=== PATIENT | female | born 1960 | race African-American/Black ===

== ENCOUNTER 2025-05-09 14:13 | Inpatient (IN) | payer OTHER ==
[~2025-05-09 14:13] MED LIST: Iopamidol-370 76% 500 ML MDV (1 ML CHARGE) ONE
[2025-05-09 16:53] LABS: #Basophils Less than 0.03 10x3/uL (0.0-0.2); #Eosinophils 0.36 10x3/uL (0.0-0.7); #Monocytes 0.43 10x3/uL (0.11-0.59); #Neutrophils 2.48 10x3/uL (1.40-6.50); %Basophils 0.2 % (0.0-1.0); %Eosinophils 8.8 % (0.0-10.0); %Lymphocytes 19.7 % (21.0-51.0); %Monocytes 10.5 % (0.0-10.0); %Neutrophils 60.3 % (42.0-75.0); Hematocrit 47.1 % (36.0-47.0); Hemoglobin 15.3 g/dL (12.0-16.0); Mean Corpuscular Hemoglobin 29.7 pg (27.0-31.0); Mean Corpuscular Volume 91.5 fL (78.0-98.0); Platelet Count 187 10x3/uL (130-400); Red Blood Cell (RBC) Count 5.15 mill/uL (4.20-5.40); White Blood Cell (WBC) Count 4.11 10x3/uL (4.8-10.8)
[2025-05-09 17:06] LABS: ALT (SGPT) 21 U/L (Less than 34); AST (SGOT) 24 U/L (11-34); Albumin 3.6 g/dL (3.1-4.5); Alkaline Phosphatase 60 U/L (40-110); Anion Gap 14 mmol/L (10-20); BUN (Urea Nitrogen) 16 mg/dL (9.8-20.1); Bilirubin, Total 0.5 mg/dL (0.3-1.2); Calc. Creatinine Clearance 0 mL/min (70-130); Calcium 9.6 mg/dL (7.8-10.44); Carbon Dioxide 30 mmol/L (23-31); Chloride 104 mmol/L (98-107); Globulin 3.5 g/dL (2.4-3.5); Glucose 97 mg/dL (80-115); Potassium 3.7 mmol/L (3.5-5.1); Sodium 144 mmol/L (136-145)
[2025-05-09] MEDS ORDERED: Nitroglycerin 2% Ointment 1 INCH/1 GM Packet ONE (18:28)
[2025-05-09] MEDS ORDERED: Ondansetron PF 4 MG/2 ML Vial IVP PRN (18:56)
[2025-05-09] MEDS ORDERED: Senokot S 8.6-50 MG TAB PO PRN (18:56)
[2025-05-09] MEDS: Benzonatate 100 MG CAP PO SCH (23:47)
[2025-05-10 04:14] LABS: #Basophils Less than 0.03 10x3/uL (0.0-0.2); #Eosinophils Less than 0.03 10x3/uL (0.0-0.7); #Monocytes 0.07 10x3/uL (0.11-0.59); #Neutrophils 4.03 10x3/uL (1.40-6.50); %Basophils 0.2 % (0.0-1.0); %Eosinophils 0.0 % (0.0-10.0); %Lymphocytes 7.4 % (21.0-51.0); %Monocytes 1.6 % (0.0-10.0); %Neutrophils 90.4 % (42.0-75.0); Hematocrit 44.1 % (36.0-47.0); Hemoglobin 14.3 g/dL (12.0-16.0); Mean Corpuscular Hemoglobin 29.5 pg (27.0-31.0); Mean Corpuscular Volume 91.1 fL (78.0-98.0); Platelet Count 201 10x3/uL (130-400); Red Blood Cell (RBC) Count 4.84 mill/uL (4.20-5.40); White Blood Cell (WBC) Count 4.46 10x3/uL (4.8-10.8)
[2025-05-10 04:36] LABS: ALT (SGPT) 20 U/L (Less than 34); AST (SGOT) 25 U/L (11-34); Albumin 3.6 g/dL (3.1-4.5); Alkaline Phosphatase 60 U/L (40-110); Anion Gap 15 mmol/L (10-20); BUN (Urea Nitrogen) 15 mg/dL (9.8-20.1); Bilirubin, Total 0.4 mg/dL (0.3-1.2); Calc. Creatinine Clearance 67 mL/min (70-130); Calcium 9.5 mg/dL (7.8-10.44); Carbon Dioxide 26 mmol/L (23-31); Cardiac Risk 2.7 (Less than 4.5); Chloride 105 mmol/L (98-107); Cholesterol 204 mg/dl (< 200 Desired); Globulin 3.4 g/dL (2.4-3.5); Glucose 198 mg/dL (80-115); HDL Cholesterol 76 mg/dL (>60 Neg Risk); LDL Cholesterol, Calculated 115 mg/dL; Potassium 3.8 mmol/L (3.5-5.1); Sodium 142 mmol/L (136-145); Triglycerides 66 mg/dL (Less than 150)
[2025-05-10] MEDS: Mometasone 200 MCG/Formoterol 5 MCG 120 PUFF INHALER INH SCH (06:43)
[2025-05-10] MEDS: Aspirin 81 mg Enteric Coated Tablet PO SCH (07:59)
[2025-05-10] MEDS: hydrALAZINE 20 MG/ML VIAL SLOW IVP PRN ×2 (08:06→15:49)
[2025-05-10 12:08] VITALS: BMI 33.0
[2025-05-10] MEDS: Metoprolol Succinate XL 25 MG ER.TAB PO SCH (12:36)
[2025-05-10] MEDS ORDERED: Dextrose 50% Abboject 50 ML SYRINGE SLOW IVP PRN (17:37)
[2025-05-10] MEDS ORDERED: Glucagon 1 MG/ML KIT IM PRN (17:37)
[2025-05-11] MEDS: Losartan 25 MG TAB PO SCH (02:07)
[2025-05-11 05:07] LABS: #Basophils Less than 0.03 10x3/uL (0.0-0.2); #Eosinophils Less than 0.03 10x3/uL (0.0-0.7); #Monocytes 0.31 10x3/uL (0.11-0.59); #Neutrophils 9.85 10x3/uL (1.40-6.50); %Basophils 0.1 % (0.0-1.0); %Eosinophils 0.0 % (0.0-10.0); %Lymphocytes 4.6 % (21.0-51.0); %Monocytes 2.9 % (0.0-10.0); %Neutrophils 91.7 % (42.0-75.0); Hematocrit 47.8 % (36.0-47.0); Hemoglobin 15.3 g/dL (12.0-16.0); Mean Corpuscular Hemoglobin 29.5 pg (27.0-31.0); Mean Corpuscular Volume 92.1 fL (78.0-98.0); Platelet Count 238 10x3/uL (130-400); Red Blood Cell (RBC) Count 5.19 mill/uL (4.20-5.40); White Blood Cell (WBC) Count 10.74 10x3/uL (4.8-10.8)
[2025-05-11 05:40] LABS: ALT (SGPT) 17 U/L (Less than 34); AST (SGOT) 14 U/L (11-34); Albumin 3.3 g/dL (3.1-4.5); Alkaline Phosphatase 56 U/L (40-110); Anion Gap 13 mmol/L (10-20); BUN (Urea Nitrogen) 24 mg/dL (9.8-20.1); Bilirubin, Total 0.3 mg/dL (0.3-1.2); Calc. Creatinine Clearance 83 mL/min (70-130); Calcium 9.7 mg/dL (7.8-10.44); Carbon Dioxide 27 mmol/L (23-31); Chloride 102 mmol/L (98-107); Globulin 3.2 g/dL (2.4-3.5); Glucose 142 mg/dL (80-115); Potassium 4.0 mmol/L (3.5-5.1); Sodium 138 mmol/L (136-145)
[2025-05-11] MEDS: Acetaminophen 325 MG TAB PO PRN (09:14)
[2025-05-11] MEDS: niCARdipine 25 MG in Sodium Chloride 0.9% 250 ML 250 ML IVPB SCH (14:38)
[2025-05-12 03:53] LABS: #Basophils 0.03 10x3/uL (0.0-0.2); #Eosinophils Less than 0.03 10x3/uL (0.0-0.7); #Monocytes 0.49 10x3/uL (0.11-0.59); #Neutrophils 8.55 10x3/uL (1.40-6.50); %Basophils 0.3 % (0.0-1.0); %Eosinophils 0.1 % (0.0-10.0); %Lymphocytes 9.5 % (21.0-51.0); %Monocytes 4.8 % (0.0-10.0); %Neutrophils 84.5 % (42.0-75.0); Hematocrit 49.1 % (36.0-47.0); Hemoglobin 16.3 g/dL (12.0-16.0); Mean Corpuscular Hemoglobin 30.2 pg (27.0-31.0); Mean Corpuscular Volume 91.1 fL (78.0-98.0); Platelet Count 226 10x3/uL (130-400); Red Blood Cell (RBC) Count 5.39 mill/uL (4.20-5.40); White Blood Cell (WBC) Count 10.12 10x3/uL (4.8-10.8)
[2025-05-12 04:13] LABS: ALT (SGPT) 14 U/L (Less than 34); AST (SGOT) 15 U/L (11-34); Albumin 3.3 g/dL (3.1-4.5); Alkaline Phosphatase 53 U/L (40-110); Anion Gap 14 mmol/L (10-20); BUN (Urea Nitrogen) 25 mg/dL (9.8-20.1); Bilirubin, Total 0.3 mg/dL (0.3-1.2); Calc. Creatinine Clearance 98 mL/min (70-130); Calcium 9.2 mg/dL (7.8-10.44); Carbon Dioxide 25 mmol/L (23-31); Chloride 101 mmol/L (98-107); Globulin 3.2 g/dL (2.4-3.5); Glucose 109 mg/dL (80-115); Potassium 3.6 mmol/L (3.5-5.1); Sodium 136 mmol/L (136-145)
[2025-05-12 05:30] VITALS: BMI 33.9
[2025-05-12 06:51] LABS: Free T4 (Free Thyroxine) 1.0 ng/dL (0.70-1.48)
[2025-05-12] MEDS: Metoprolol Succinate XL 50 MG ER.TAB PO SCH (08:40)
[2025-05-12] MEDS: predniSONE 20 MG TAB PO SCH (08:40)
[2025-05-12] MEDS: Losartan 25 MG TAB PO SCH (08:40)
[2025-05-12] MEDS: Carvedilol 6.25 MG TAB PO SCH ×2 (14:02→15:39)
[2025-05-12] MEDS ORDERED: diphenhydrAMINE 25 MG CAP PO PRN (18:49)
[2025-05-13] MEDS: hydrALAZINE 20 MG/ML VIAL SLOW IVP PRN (01:59)
[2025-05-13] MEDS: Aspirin Chewable 81 MG TAB PO SCH (04:25)
[2025-05-13] MEDS: Calcium Carbonate 500 MG ChewTAB PO PRN (04:26)
[2025-05-13 04:51] LABS: #Basophils 0.03 10x3/uL (0.0-0.2); #Eosinophils Less than 0.03 10x3/uL (0.0-0.7); #Monocytes 0.77 10x3/uL (0.11-0.59); #Neutrophils 7.58 10x3/uL (1.40-6.50); %Basophils 0.3 % (0.0-1.0); %Eosinophils 0.2 % (0.0-10.0); %Lymphocytes 17.8 % (21.0-51.0); %Monocytes 7.4 % (0.0-10.0); %Neutrophils 72.8 % (42.0-75.0); Hematocrit 51.6 % (36.0-47.0); Hemoglobin 16.6 g/dL (12.0-16.0); Mean Corpuscular Hemoglobin 29.4 pg (27.0-31.0); Mean Corpuscular Volume 91.3 fL (78.0-98.0); Platelet Count 255 10x3/uL (130-400); Red Blood Cell (RBC) Count 5.65 mill/uL (4.20-5.40); White Blood Cell (WBC) Count 10.41 10x3/uL (4.8-10.8)
[2025-05-13 05:07] LABS: ALT (SGPT) 23 U/L (Less than 34); AST (SGOT) 17 U/L (11-34); Albumin 3.2 g/dL (3.1-4.5); Alkaline Phosphatase 56 U/L (40-110); Anion Gap 14 mmol/L (10-20); BUN (Urea Nitrogen) 30 mg/dL (9.8-20.1); Bilirubin, Total 0.3 mg/dL (0.3-1.2); Calc. Creatinine Clearance 93 mL/min (70-130); Calcium 9.0 mg/dL (7.8-10.44); Carbon Dioxide 27 mmol/L (23-31); Chloride 100 mmol/L (98-107); Globulin 3.2 g/dL (2.4-3.5); Glucose 102 mg/dL (80-115); Potassium 3.9 mmol/L (3.5-5.1); Sodium 137 mmol/L (136-145)
[2025-05-13] MEDS: Pantoprazole 40 MG VIAL IVP SCH (09:08)
[2025-05-13] MEDS ORDERED: Simethicone Chewable 80 MG TAB PO PRN (11:02)
[2025-05-13] MEDS: Enoxaparin 40 MG (0.4 mL) SYRINGE SC SCH (20:59)
[2025-05-14 06:21] LABS: #Basophils 0.04 10x3/uL (0.0-0.2); #Eosinophils 0.06 10x3/uL (0.0-0.7); #Monocytes 0.94 10x3/uL (0.11-0.59); #Neutrophils 7.02 10x3/uL (1.40-6.50); %Basophils 0.4 % (0.0-1.0); %Eosinophils 0.6 % (0.0-10.0); %Lymphocytes 22.9 % (21.0-51.0); %Monocytes 8.8 % (0.0-10.0); %Neutrophils 65.4 % (42.0-75.0); Hematocrit 52.0 % (36.0-47.0); Hemoglobin 16.6 g/dL (12.0-16.0); Mean Corpuscular Hemoglobin 29.5 pg (27.0-31.0); Mean Corpuscular Volume 92.5 fL (78.0-98.0); Platelet Count 282 10x3/uL (130-400); Red Blood Cell (RBC) Count 5.62 mill/uL (4.20-5.40); White Blood Cell (WBC) Count 10.71 10x3/uL (4.8-10.8)
[2025-05-14 06:39] LABS: ALT (SGPT) 32 U/L (Less than 34); AST (SGOT) 29 U/L (11-34); Albumin 3.0 g/dL (3.1-4.5); Alkaline Phosphatase 60 U/L (40-110); Anion Gap 14 mmol/L (10-20); BUN (Urea Nitrogen) 33 mg/dL (9.8-20.1); Bilirubin, Total 0.2 mg/dL (0.3-1.2); Calc. Creatinine Clearance 80 mL/min (70-130); Calcium 9.5 mg/dL (7.8-10.44); Carbon Dioxide 25 mmol/L (23-31); Chloride 101 mmol/L (98-107); Globulin 3.1 g/dL (2.4-3.5); Glucose 79 mg/dL (80-115); Potassium 3.6 mmol/L (3.5-5.1); Sodium 136 mmol/L (136-145)
[2025-05-14] MEDS: Carvedilol 6.25 MG TAB PO SCH (08:42)
[2025-05-15 07:21] LABS: #Basophils 0.06 10x3/uL (0.0-0.2); #Eosinophils 0.08 10x3/uL (0.0-0.7); #Monocytes 0.77 10x3/uL (0.11-0.59); #Neutrophils 6.76 10x3/uL (1.40-6.50); %Basophils 0.6 % (0.0-1.0); %Eosinophils 0.7 % (0.0-10.0); %Lymphocytes 26.7 % (21.0-51.0); %Monocytes 7.1 % (0.0-10.0); %Neutrophils 62.9 % (42.0-75.0); Hematocrit 49.4 % (36.0-47.0); Hemoglobin 16.5 g/dL (12.0-16.0); Mean Corpuscular Hemoglobin 30.1 pg (27.0-31.0); Mean Corpuscular Volume 90.0 fL (78.0-98.0); Platelet Count 265 10x3/uL (130-400); Red Blood Cell (RBC) Count 5.49 mill/uL (4.20-5.40); White Blood Cell (WBC) Count 10.77 10x3/uL (4.8-10.8)
[2025-05-15 07:39] LABS: ALT (SGPT) 33 U/L (Less than 34); AST (SGOT) 23 U/L (11-34); Albumin 3.0 g/dL (3.1-4.5); Alkaline Phosphatase 52 U/L (40-110); Anion Gap 14 mmol/L (10-20); BUN (Urea Nitrogen) 38 mg/dL (9.8-20.1); Bilirubin, Total 0.3 mg/dL (0.3-1.2); Calc. Creatinine Clearance 86 mL/min (70-130); Calcium 8.9 mg/dL (7.8-10.44); Carbon Dioxide 26 mmol/L (23-31); Chloride 101 mmol/L (98-107); Globulin 2.9 g/dL (2.4-3.5); Glucose 78 mg/dL (80-115); Potassium 3.6 mmol/L (3.5-5.1); Sodium 137 mmol/L (136-145)
[2025-05-15] MEDS: Carvedilol 6.25 MG TAB PO SCH (10:54)
[2025-05-15 14:25] VITALS: BP 145/90; TEMP 97.6
[2025-05-15] MEDS ORDERED: Carvedilol 6.25 MG TAB PO SCH (17:00)
[2025-05-16] MEDS ORDERED: predniSONE 20 MG TAB PO SCH (08:00)
== END 2025-05-15 15:23 | disposition home or self-care (01) | DRG 190 ==
LOC: ERS 14:13 → SUATTDRO 14:13 → 2NO 18:55 → OBSVTOIN 05-10 14:06 → IMCU/EMU 05-11 14:31 → MSONC 05-13 18:11
PROVIDERS: ADMIT Internal Medicine; ATTEND Internal Medicine
DX: J44.1 Chronic obstructive pulmonary disease with (acute) exacerbation (principal); I21.A1 Myocardial infarction type 2; I16.1 Hypertensive emergency; N17.9 Acute kidney failure, unspecified; F17.210 Nicotine dependence, cigarettes, uncomplicated; E03.9 Hypothyroidism, unspecified; E78.5 Hyperlipidemia, unspecified; I10 Essential (primary) hypertension; H53.8 Other visual disturbances; F41.9 Anxiety disorder, unspecified; F32.A Depression, unspecified; F20.9 Schizophrenia, unspecified; F10.90 Alcohol use, unspecified, uncomplicated; Z98.891 History of uterine scar from previous surgery
CPT/HCPCS: 36415; 36416; 70450; 70551; 71045; 71275; 76536; 80053; 80061; 83036; 83880; 84439; 84443; 84445; 84481; 84484; 85025; 87070; 87205; 87428; 93005; 93010; 93306; 94640; 96374; 96375; 96376; G0378; J0360; J1650; J1815; J2272; J2470; J2919; J7050; J7512; Q9967